=== PATIENT | female | born 1995 | race Caucasian/White ===

== ENCOUNTER 2018-06-13 21:38 | Inpatient (IN) ==
[~2018-06-13 21:38] MED LIST: *HR* Nalbuphine 10 MG/ML AMPUL IVP PRN; Famotidine 20 MG/2 ML VIAL IVP PRN; Metoclopramide 10 MG/2 ML VIAL IVP PRN; Naloxone 0.4 MG/ML INJ IVP PRN; Ondansetron 4 MG/2 ML VIAL IVP PRN
[2018-06-13] MEDS ORDERED: Ringers Solution, Lactated 1,000 ML IVC SCH (21:45)
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
[2018-06-13 22:01] LABS: Basophils # 0.1 K/mcL (0.0-0.2); Basophils % 0.5 %; Eosinophils # 0.1 K/mcL (0.0-0.6); Hematocrit 32.5 % (35.3-44.9); Hemoglobin 11.4 g/dL (11.5-15.4); Immature Granulocytes % 2.1 % (0-4); Lymphocytes # 2.1 K/mcL (0.6-4.6); Lymphocytes % 16.6 %; Mean Corpuscular HGB Conc 35.1 g/dL (31.6-35.5); Mean Corpuscular Hemoglobin 30.6 pg (28.0-33.3); Mean Corpuscular Volume 87.1 fL (83.0-100.0); Mean Platelet Volume 9.1 fL (9.4-12.4); Monocytes # 1.4 K/mcL (0.0-1.3); Monocytes % 11.2 %; Neutrophils # 8.5 K/mcL (1.6-8.9); Platelet Count 226 K/mcL (140-400); Red Blood Count 3.73 M/mcL (3.82-4.97); Red Cell Distribution Width 12.8 % (11.5-14.5); Segmented Neutrophils % 68.6 %
[2018-06-13 22:07] LABS: Amphetamine Screen,Urine Negative ng/mL (Cutoff=1000); Barbiturate Screen,Urine Negative ng/mL (Cutoff=200); Benzodiazepines Screen,Urine Negative ng/mL (Cutoff=200); Cannabinoid Screen,Urine Negative ng/mL (Cutoff = 50); Cocaine Screen,Urine Negative ng/mL (Cutoff= 300); Opiate Screen,Urine Negative ng/mL (Cutoff=300); Phencyclidine Screen,Urine Negative ng/mL (Cutoff=25)
--- NOTE | 2018-06-13 22:18 | Anesthesia Evaluation PreOp ---
Date of Encounter: 06/13/18 Time of Encounter: 22:16 - Past History Planned Operation: arabella Cardiac History: Denies any Significant Hx Pulmonary History: Asthma (childhood, no current meds) RECEIVER BULK SYSTEM History: Denies Any Significant HX Other Medical History: Other (glaucoma) Anesthesia History: No Prior Anesthetic Complications, Past Anesthesia : Yes (36.4 ) Alcohol Use: none Drug use: none Medications and Allergies Dorzolamide/Timolol/Pf [Cosopt Pf Eye Drops] 1 each OP BID 06/09/18 [History] Ferrous Sulfate 325 mg PO BID 06/09/18 [History] Pnv Cmb#21/Iron/Folic Acid [ Complete Caplet] 1 each PO DAILY 06/09/18 [History] Allergy/AdvReac Type Severity Reaction Status Date / Time No Known Allergies Allergy Verified 11/17/17 12:46 - Meds/Allergy Pre-op Review Medications Reviewed: Yes Allergies Reviewed: Yes Beta Blockers on Current Med List: No Anesthesia Results - Labs 06/13/18 21:35 Anesthesia Exam O2 Sat Height 1.63 m Height 1.63 m Weight 61.689 kg Weight 61.779 kg Height: 64 Weight: 61 - HEENT Pupil (Motor): Pupils equal Mallampati: II Teeth: Normal Oral Opening: Greater than 3 - RECEIVER BULK SYSTEM LOC: Oriented RECEIVER BULK SYSTEM Motor: Normal RUE, Normal LUE, Normal RLE, Normal LLE, Normal Face RECEIVER BULK SYSTEM Sensory: Normal: RUE, LUE, RLE, LLE, Face - Cardiac Rhythm: Regular Murmur: None JVD: No Carotid Bruit: No - Pulmonary Breath Sounds: bilateral Clear Respiratory Effort: Symmetrical Anesthesia Assess/Plan ASA Score: 2 Level of consciousness: Cooperative Anesthetic Plan: Epidural Monitoring Plan: Standard Monitors Recovery Plan: PACU
[2018-06-13] MEDS: Ringers Solution, Lactated 1,000 ML IVC SCH (22:34)
[2018-06-13] MEDS ORDERED: Acetaminophen 325 MG TABLET PO PRN (23:30)
[2018-06-14] MEDS: Oxytocin 20 units/ LR 1000 mL 20 UNIT/1,000 ML BAG IVC SCH ×2 (00:15→13:37)
[2018-06-14] MEDS: Ringers Solution, Lactated 1,000 ML IVC SCH ×2 (06:18→08:28)
--- NOTE | 2018-06-14 07:05 | OB Labor Progress Note ---
Date of Encounter: 06/14/18 Time of Encounter: 07:03 Labor Progress Note - Subjective Subjective: Patient coping well with contractions. Not complaining of any pain with contractions. - Vital Signs Vital Signs: WNL, Afebrile - Cervix Cervix: 4-5/80/-2 - Heart Tones Heart Tones: FHR 135 bpm, moderate variability, +15x15 accels, no decels - [place]: Q2-3 minutes - Interventions Interventions: SVE, AROM of small forebag, scant amount of fluid returned. - Plan Plan: IV pain medication or epidural when patient desires Continue Pitocin augmentation Anticipate
[2018-06-14] MEDS ORDERED: Epidural Premix (fent/bupiv) 110 ML EP ONE (07:46)
[2018-06-14] MEDS ORDERED: *HR* Ropivacaine/PF 0.2% 20 ML VIAL ONE (07:47)
[2018-06-14] MEDS ORDERED: Lidocaine -MPF 1% 5 ML AMPUL ONE (07:47)
[2018-06-14] MEDS ORDERED: *HR* FentaNYL (PF) 100 MCG/2 ML VIAL ONE (07:47)
[2018-06-14] MEDS ORDERED: Methylergonovine 0.2 MG/ML AMPUL IM ONE (08:39)
--- NOTE | 2018-06-14 08:40 | Anesthesia Procedures ---
Addendum entered and electronically signed by Christian Aly CRNA 06/14/18 12:13: Infant A Delivery Date: 06/14/18 Infant Delivery Time: 10:58 Original Note: Date of Encounter: 06/14/18 Time of Encounter: 07:49 Procedures: Anesthesia - Epidural/Spinal Patient ID/Chart reviewed: Yes Patient examined: Yes OB Eval: Gestational age: 36.4 OB Eval: : 1 OB Eval: Hx Para: 0 OB Eval: Dilated at (cm): 5 OB Eval: Contractions: Non-stressed pattern Consent Obtained: Yes Supplemental Oxygen: None/Room Air Site Prep: Aseptic Technique, Sterile prep and drape, Povidone-Iodine 1% Patient position: upright Local Anesthetic: Lidocaine 1% Amount of Local Anesthetic used: 3 Touhy Needle Gauge: 18 Touhy Needle Depth (cm): 4 Catheter Depth at Skin (cm): 13 Test Dose (1.5% Lido + Epi): Volume given (mls): 3 Test Dose Result: Negative Loading Dose: Fentanyl (mcg): 100 Loading Dose: Other: Ropivicaine 0.2% 8ml Loading Dose Administered: Thru Catheter Infusion Med: 0.125% Bupivacaine w/ 2 mcg/ml Fentanyl Infusion Rate (mls/hr): [address]: Tegaderm, Tape Interspace Used: L3-L4 Loss of Resistance (AMY): Yes (saline) Blood: No CSF: No Paresthesia: No Procedure: PAUL placed 1st pass in upright position, no heme, no csf, no immediate complications noted following bolus. VSS and FHT stable throughout. Vitals + FHT's: 0749 BP 130/94 P 113 R 20 0818 BP 121/53 P 60 R 16 FHT 130s
--- NOTE | 2018-06-14 11:34 | OB/GYN Procedure Note ---
Delivery - Delivery Date: 06/14/18 Provider: Maira Arreguin Intrapartum events: none Delivery induction: none Delivery augmentation: pitocin Delivery monitor: external FHT, external uterine Anesthesia: epidural Quantitated Blood Loss: 400 - (s) A Infant Delivery Date: 06/14/18 Delivery Time: 10:58 Presentation: vertex Position: SHELLY Route of delivery: Gender: Male Viability: Viable Pounds: 6 Ounces: 8 Weight Gram: 2.955 kg at 1 minute: 8 at 5 mins: 9 Shoulder Dystocia: not encountered Specimens collected: cord blood Placenta: spontaneous Cord: 3 umbilical vessels - Repair Episiotomy: none Laceration Description: Perineal - 1st Degree, Vaginal (right vaginal wall), Superficial (labial and periurethral) - Complications Delivery complications: uterine atony Delivery comments: CNM called to room when pt complete and +2. She pushed effectively to for viable male weighing 6lbs 8oz with apgars 8 at one minute and 9 at five minutes. After pulsations ceased the cord was clamped and cut and the placenta delivered spontaneous and intact. A first degree perineal laceration and a right vaginal wall laceration was repaired with 2-0 monocryl. Uterine atony was then noted with moderate flow of lochia. Fundal massage improves tone but after a few minutes atony is again noted. Methergine given IM. EBL 400ml. Will continue to monitor. Mother and baby stable in kangaroo care following . - Disposition Mom disposition: stable in LDR disposition: stable in LDR
[2018-06-14] MEDS ORDERED: Benzocaine/Menthol 56 GM AEROSOL SPRAY TP PRN (13:37)
[2018-06-14] MEDS ORDERED: Acetaminophen 325 MG TABLET PO PRN (13:37)
[2018-06-14] MEDS ORDERED: Measles/Mumps/Rubella Vacc 0.5 ML VIAL SQ PRN (13:37)
[2018-06-14] MEDS ORDERED: Rho Immune Globulin 1,500 UNIT SYRINGE IM PRN (13:37)
[2018-06-14] MEDS ORDERED: Oxytocin 20 units/ LR 1000 mL 20 UNIT/1,000 ML BAG IVC SCH (13:37)
[2018-06-15] MEDS: Ibuprofen 600 MG TABLET PO PRN ×3 (05:03→14:02)
[2018-06-15] MEDS ORDERED: Prenatal Vit/FA 1 EACH TABLET PO SCH (09:00)
[2018-06-15 09:30] VITALS: BP 121/71
--- NOTE | 2018-06-15 10:40 | Discharge Summary ---
Date of Encounter: 06/15/18 Time of Encounter: 10:37 - Discharge Diagnosis (1) Vaginal delivery Priority: Primary Status: Acute Comments: S/P vaginal delivery day 1 Pain well controlled Lochia light and without clots VSS Tolerating regular diet; passing flatus Voiding without difficulty Discharge today POC per consult with Dr Irvin - Discharge Medications Prescriptions: Ibuprofen [Motrin] 600 mg PO Q6HR PRN #30 tablet PRN Reason: Cramping Breast Pump [BREAST PUMP] 1 each .ROUTE AD #1 each Docusate [Colace] 100 mg PO BID #30 capsule Ferrous Sulfate 325 mg PO DAILY #90 tablet Home Medications: Dorzolamide/Timolol/Pf [Cosopt Pf Eye Drops] 1 each OP BID 06/09/18 [History] Pnv Cmb#21/Iron/Folic Acid [ Complete Caplet] 1 each PO DAILY 06/09/18 [History] Acetaminophen [Tylenol] 650 mg PO Q6HR PRN tablet 06/15/18 [Rx] Benzocaine/Menthol [place] [Dermoplast [place]] 1 appl TP QID PRN aerosol 06/15/18 [Rx] Breast Pump [BREAST PUMP] 1 each .ROUTE AD #1 each 06/15/18 [Rx] Docusate [Colace] 100 mg PO BID #30 capsule 06/15/18 [Rx] Ferrous Sulfate 325 mg PO DAILY #90 tablet 06/15/18 [Rx] Ibuprofen [Motrin] 600 mg PO Q6HR PRN #30 tablet 06/15/18 [Rx] Mupirocin [Bactroban Oint] 1 appl TP BID tube 06/15/18 [Rx] Allergies/Adverse Reactions: Allergy/AdvReac Type Severity Reaction Status Date / Time No Known Allergies Allergy Verified 11/17/17 12:46 Data Procedures and tests throughout hospitalization: Laboratory Tests 06/13/18 06/13/18 21:32 21:35 WBC 12.4 H RBC 3.73 L Hgb 11.4 L Hct 32.5 L MCV 87.1 MCH 30.6 MCHC 35.1 RDW 12.8 Plt Count 226 MPV 9.1 L Immature Gran % 2.1 Seg Neutrophils % 68.6 Lymphocytes % 16.6 Monocytes % 11.2 Eosinophils % 1.0 Basophils % 0.5 Neutrophils # 8.5 Lymphocytes # 2.1 Monocytes # 1.4 H Eosinophils # 0.1 Basophils # 0.1 Urine Opiates Screen Negative Ur Barbiturates Screen Negative Ur Phencyclidine Scrn Negative Ur Amphetamines Screen Negative U Benzodiazepines Scrn Negative Urine Cocaine Screen Negative U Marijuana (THC) Screen Negative Ur Drug Screen Interp See Below Date of admission: 06/13/18 21:39 Primary care physician: PCP SAMEER Consults: 06/14/18 13:37 Consult to Plastic Eye Technician [CONS] Routine Comment: Vaginal delivery, consult needed Discharging clinician: Karen Judge Anticipated date of discharge: 06/15/18 - Patient Status Disposition: Home, Self-Care Condition: Good Functional capacity at discharge: independent ambulation Overall status at discharge: patient is progressing back to baseline - Discharge Instructions Follow Up With: NONE,PCP [Primary Care Provider] - Maira Arreguin CNM [Non-Partnered Physician] - - Diet and Activity Activity: increase activity as tolerated Diet: regular diet Hospital Course Reason for admission: rupture of membranes Delivery: Episiotomy: none Laceration: 1st degree, other Other procedures: none complications: none Discharge diagnosis: IUP at term delivered baby: male Time spent discussing smoking cessation with patient: 3 to 10 minutes Time Attestation: Total time spent providing and/or coordinating discharge services: Time Spent: Less than 30 minutes Exam - Constitutional Vitals: Temp Pulse Resp BP Pulse Ox 97.5 F L 84 14 121/71 98 06/15/18 07:30 06/15/18 07:30 06/15/18 07:30 06/15/18 07:30 06/15/18 05:06 General appearance IM: cooperative, A&O X 3, pleasant - Respiratory Respiratory exam: Present: CTAB - Cardiovascular Cardiovascular exam IM: Present: RRR, +S1, +S2 - GI/Abdominal GI/Abdominal exam IM: normal bowel sounds, soft - Rectal Rectal exam: deferred - Uterine Tone: Firm Uterus Position: At Umbilicus, Midline - Extremities Exam Extremities exam IM: Present: normal capillary refill, normal inspection, radial pulses palpable and symmetrical - Neurological Exam Neurological exam: alert, oriented X3
== END 2018-06-15 18:35 | disposition home or self-care (01) | DRG 805 ==
LOC: 1NENULAB → 1NENUOBS 06-14 13:52
PROVIDERS: ADMIT Registered Nurse; ATTEND Registered Nurse

== ENCOUNTER → 2020-10-09 20:20 | Observation (INO) | END | disposition home or self-care (01) | LOC: 1NENULAB | PROVIDERS: ADMIT Student in an Organized Health Care Education/Training Program; ATTEND Student in an Organized Health Care Education/Training Program ==

== ENCOUNTER 2021-01-29 20:07 | Inpatient (IN) ==
[2021-01-29 19:28] LABS: Basophils % 0.4 %; Eosinophils # 0.1 K/mcL (0.0-0.6); Eosinophils % 1.2 %; Hematocrit 35.4 % (35.3-44.9); Hemoglobin 12.2 g/dL (11.5-15.4); Lymphocytes # 1.7 K/mcL (0.6-4.6); Mean Corpuscular HGB Conc 34.5 g/dL (31.6-35.5); Mean Corpuscular Hemoglobin 30.5 pg (28.0-33.3); Mean Corpuscular Volume 88.5 fL (83.0-100.0); Mean Platelet Volume 10.8 fL (9.4-12.4); Monocytes % 8.8 %; Neutrophils # 8.2 K/mcL (1.6-8.9); Platelet Count 207 K/mcL (140-400); Segmented Neutrophils % 73.6 %; White Blood Count 11.1 K/mcL (4.3-11.1)
[2021-01-29 19:35] LABS: Amphetamine Screen,Urine Negative ng/mL (Cutoff=1000); Barbiturate Screen,Urine Negative ng/mL (Cutoff=200); Benzodiazepines Screen,Urine Negative ng/mL (Cutoff=200); Cannabinoid Screen,Urine Negative ng/mL (Cutoff = 50); Cocaine Screen,Urine Negative ng/mL (Cutoff= 300); Opiate Screen,Urine Negative ng/mL (Cutoff=300); Phencyclidine Screen,Urine Negative ng/mL (Cutoff=25)
[~2021-01-29 20:07] MED LIST changes: +*HR* Nalbuphine 10 MG/ML AMPUL IV PRN; -*HR* Nalbuphine 10 MG/ML AMPUL IVP PRN; +Ringers Solution, Lactated 1,000 ML IVC SCH
[2021-01-29] MEDS ORDERED: EPHEDrine 50 MG/ML VIAL IVP PRN (20:37)
[2021-01-29] MEDS ORDERED: *HR* FentaNYL (PF) 100 MCG/2 ML VIAL EP ONE (20:37)
[2021-01-29] MEDS ORDERED: Epidural Premix (fent/bupiv) 110 ML EP SCH (20:45)
[2021-01-29] MEDS ORDERED: Ropivacaine/PF 0.2% 20 ML VIAL ONE (21:09)
[2021-01-29] MEDS ORDERED: *HR* FentaNYL (PF) 100 MCG/2 ML VIAL ONE ×2 (21:09)
[2021-01-29] MEDS ORDERED: Oxytocin 20 units/ LR 1000 mL 20 UNIT/1,000 ML BAG IVC ONE (21:13)
[2021-01-29] MEDS ORDERED: Oxytocin 20 units/ LR 1000 mL 20 UNIT/1,000 ML BAG IVC SCH (21:15)
[2021-01-30] MEDS ORDERED: *HR* FentaNYL (PF) 100 MCG/2 ML VIAL ONE (00:17)
[2021-01-30] MEDS ORDERED: Benzocaine/Menthol 56 GM AEROSOL SPRAY TP ONE (00:47)
[2021-01-30] MEDS ORDERED: Rho Immune Globulin 1,500 UNIT SYRINGE IM PRN (01:12)
[2021-01-30] MEDS ORDERED: Measles/Mumps/Rubella Vacc 0.5 ML VIAL SQ PRN (01:12)
[2021-01-30] MEDS ORDERED: Oxytocin 20 units/ LR 1000 mL 20 UNIT/1,000 ML BAG IVC SCH (01:15)
[2021-01-30 05:23] LABS: Basophils % 0.2 %; Eosinophils % 0.1 %; Hematocrit 31.1 % (35.3-44.9); Immature Granulocytes % 0.7 % (0-4); Lymphocytes # 1.6 K/mcL (0.6-4.6); Lymphocytes % 9.4 %; Mean Corpuscular HGB Conc 34.1 g/dL (31.6-35.5); Mean Corpuscular Hemoglobin 30.1 pg (28.0-33.3); Mean Corpuscular Volume 88.4 fL (83.0-100.0); Mean Platelet Volume 9.8 fL (9.4-12.4); Monocytes # 1.3 K/mcL (0.0-1.3); Monocytes % 7.3 %; Platelet Count 203 K/mcL (140-400); Red Blood Count 3.52 M/mcL (3.82-4.97); Red Cell Distribution Width 12.9 % (11.5-14.5); Segmented Neutrophils % 82.3 %
[2021-01-30 05:29] LABS: Hemoglobin 10.6 g/dL (11.5-15.4); Neutrophils # 14.2 K/mcL (1.6-8.9); White Blood Count 17.3 K/mcL (4.3-11.1)
[2021-01-30] MEDS: Ibuprofen 600 MG TABLET PO PRN ×2 (08:06→16:22)
[2021-01-30] MEDS: Prenatal Vit/FA 1 EACH TABLET PO SCH (08:06)
[2021-01-30] MEDS: Acetaminophen 325 MG TABLET PO PRN (18:08)
[2021-01-31] MEDS: Ibuprofen 600 MG TABLET PO PRN ×2 (04:33→13:54)
[2021-01-31 07:43] VITALS: BP 121/76; PULSE 75; TEMP 97.9; O2SAT 99
[2021-01-31] MEDS: Prenatal Vit/FA 1 EACH TABLET PO SCH (08:11)
[2021-01-31] MEDS: Acetaminophen 325 MG TABLET PO PRN (08:11)
[2021-01-31] MEDS ORDERED: Benzocaine/Menthol 56 GM AEROSOL SPRAY TP PRN (11:42)
== END 2021-01-31 14:12 | disposition home or self-care (01) | DRG 807 ==
LOC: 1NENULAB → 1NENUOBS 01-30 02:57
PROVIDERS: ADMIT Student in an Organized Health Care Education/Training Program; ATTEND Student in an Organized Health Care Education/Training Program